=== PATIENT | female | born 2000 | race Caucasian/White ===

== ENCOUNTER 2020-10-27 04:07 | Emergency (ER) | payer OTHER ==
[~2020-10-27] VITALS: Ht 162.6 cm; Wt 59.0 kg
[2020-10-27 04:10] VITALS: BP 120/79
--- NOTE | 2020-10-27 04:38 | NUR ---
PT TAKEN TO TRIAGE ROOM FOR ULTRASOUND BY RAÚL.
--- NOTE | 2020-10-27 04:54 | NUR ---
PT AMBULTED BACK TO CHAIR C.
--- NOTE | 2020-10-27 04:58 | NUR ---
PT AMBULTED TO RESTROOM TO COLLECT URINE SAMPLE.
--- NOTE | 2020-10-27 05:55 | NUR ---
PT RETURNED FROM RAD.
[2020-10-27 06:58] VITALS: BP 120/79
--- NOTE | 2020-10-27 06:58 | NUR ---
PATIENT BIB [employer] [facility]. PATIENT EXAMINED BY DR. TERRAZAS. PATIENT MEDICALLY CLEARED AND RELEASED IN CUSTODY IN STABLE CONDITION. ORIGINAL PRE-BOOK FORM GIVEN TO OFFICER [facility].
== END 2020-10-27 06:58 ==
LOC: MED 04:07
DX: M79.601 Pain in right arm (principal); F10.10 Alcohol abuse, uncomplicated; Z02.89 Encounter for other administrative examinations; V89.2XXA Person injured in unspecified motor-vehicle accident, traffic, initial encounter; Y93.89 Activity, other specified; Y92.89 Other specified places as the place of occurrence of the external cause; Y99.8 Other external cause status
CPT/HCPCS: 70450; 71045; 72125; 73060; 73090; 81025; 99285